=== PATIENT | male | born 1945 | race African-American/Black ===

== ENCOUNTER → 2016-05-27 | Outpatient (CLI) | payer MEDICARE ==
[~2016-05-27] MED LIST: CARTIA XT PO; NASONEX17 GM; NEURONTIN300 MG PO; SINGULAIR; XALATAN OP; [UNRECOGNIZED DRUG - REMARK]
--- NOTE | ~2016-05-27 | CT57 ---
[facility] A Service of [facility] RADIOLOGY TEXT RESULTS PAT[facility]: SW[facility]ORE [facility] UN[facility] #: [id number] AGE: [address]: Ezekiel Silva MD SEX: M ORDER DR: [id number] [facility] [address] [place], [place] [address] [id number] O MR#: [id number] Acc #: [id number] NAME: SWETA MOORE : 1945 SEX: M STUDY DATE/TIME: 05/27/2016 10:55 UNIT: [facility] ROOM: STUDY DESCRIPTION: CT Chest Wo Cont Attending Physician: Ezekiel Silva M.D. Referring Physician: Ezekiel Silva M.D. Ordering Physician: Ezekiel Silva M.D. Primary Care Physician: Sagar Lloyd M.D. MEDICAL IMAGING REPORT This report is preliminary unless electronic signature is present EXAM CT chest without contrast DATE 05/27/2016 HISTORY Physician's order states lung nodule, solitary. Patient states "spot on abdominal x-ray at [facility]." COMPARISON CT abdomen without and with contrast, CT pelvis with contrast performed at [facility] on 05/13/2016. PROCEDURE 2 mm noncontrast axial images from the thoracic inlet through the upper abdomen. Sagittal and coronal reformatted images were obtained. This CT exam was performed with one or more of the following radiation dose reduction techniques: automatic exposure control, adjustment of mA and/or kV according to patient size, and iterative reconstruction. FINDINGS 9 x 4 mm noncalcified oval shaped nodule is seen within the lingular segment of the left upper lobe, but is unchanged from the outside CT chest of 05/13/2016. Benign etiology is favored. There is minimal linear scarring posteriorly in the left lower lobe, also unchanged. No dense lung consolidations. No additional pulmonary nodules are identified. There are no pathologically enlarged mediastinal, hilar or axillary lymph nodes. Benign calcified granulomatous changes are present within the right hilum. There are faint calcifications within the vicinity of the aortic valve. 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 Thyroid gland appears unremarkable. No pericardial effusion or pleural effusion. The included portions of the upper abdominal organs have a normal noncontrast appearance. Degenerative endplate spurring is present within the thoracic spine. No acute or suspicious osseous abnormalities are identified. No acute osseous abnormalities are seen. IMPRESSION 1. oval or somewhat linear nodular density in the lingula measures approximately 9 x 4 mm and corresponds to the described finding on the outside CT from 05/13/2016. It is unchanged. Based upon its morphology, benign etiology is favored. Correlation with any more remote imaging studies, would be recommended, if available, to document stability. Alternatively, CT chest followup in 6 months would be recommended. 2. No additional pulmonary nodules. 3. Fusiform aneurysmal dilation of the ascending and descending thoracic aorta measuring 4.5 x 3.5 cm, respectively. Dictated by... Veronika Lindsay M.D. THIS IS AN ELECTRONICALLY VERIFIED REPORT Veronika Lindsay M.D. at 05/28/2016 8:[address] [facility]/yajaira TD: 05/27/2016 18:43 JOB #: [id number] MEDICAL IMAGING REPORT Page 1 of 1 COPY
== END | disposition home or self-care (01) ==
LOC: CCAT 09:40
DX: R91.1 Solitary pulmonary nodule (principal); J98.4 Other disorders of lung; I71.2 Thoracic aortic aneurysm, without rupture
CPT/HCPCS: 71250